=== PATIENT | female | born 1955 | race Caucasian/White ===

== ENCOUNTER 2025-04-07 12:45 | Emergency (ER) | payer OTHER, SELFPAY ==
[2025-04-07] VITALS (11 sets, daily range): BP systolic 146–200; BP diastolic 61–84; PULSE 60–70; RESP 16–20; TEMP 36.5; O2SAT 91–99; BMI 31.3
[2025-04-07 13:21] LABS: Add Manual Diff / Slide Review NO; Hematocrit 42.8 % (36-46); Hemoglobin 15.0 g/dL (12.0-16.0); Lymphocytes Absolute Auto 1300 /uL (1100-4500); Mean Corpuscular HGB Conc 35.0 % (30-36); Mean Corpuscular Hemoglobin 32.0 PG (26-34); Mean Corpuscular Volume 91.5 fL (80-100); Platelet Count 167 X10^3/uL (150-400)
[2025-04-07 13:31] LABS: Alanine Aminotransferase 65 IU/L (<35); Albumin 4.7 g/dL (3.5-5.0); Albumin Globulin Ratio 1.5 (1.0-2.8); Alkaline Phosphatase 67 U/L (38-126); Blood Urea Nitrogen 14 mg/dL (7-17); Calcium 9.6 mg/dL (8.4-10.2); Carbon Dioxide 28 mmol/L (22-32); Chloride 103 mmol/L (98-107); Estimated Glomerular Filt Rate > 60 mL/min (>60); Globulin 3.2 g/dL (1.7-4.1); Glucose 118 mg/dL (70-99); HEMOLYSIS < 15 (0-50); Lipase 93 U/L (23-300); Potassium 4.4 mmol/L (3.4-5.1); Sodium 139 mmol/L (137-145); Total Protein 7.9 g/dL (6.3-8.2)
[2025-04-07 18:08] LABS: Culture Indicated Urine Specimen Cultured
--- NOTE | 2025-04-07 18:08 | ED_ITS ---
HPI - Abdominal Pain General Chief Complaint: Abdominal Pain Stated Complaint: [facility]; Sent for CT, Abd Pain, Diarrhea Time Seen by Provider: 04/07/25 18:08 Source: patient Mode of arrival: Ambulatory History of Present Illness HPI narrative: Patient is a 70-year-old female with a past medical history of Alzheimer's, comes into the ED from home for evaluation of abdominal pain hand diarrhea ongoing persistent for the past few weeks, states that patient has had a change in diet but has been having intermittent symptoms for worsening last night, reports it is severe central abdomen but worse to the lower abdomen, denies any nausea and vomiting, patient at baseline. Denies any other symptoms such as headache visual disturbances chest pain shortness breath fever chills or any other GI/ symptoms at this time. Related Data Previous Rx's ?Medication ?Instructions ?Recorded cefpodoxime 200 mg tablet 200 mg PO Q12H 1 week #14 ta bs 04/07/25 Allergies Allergy/AdvReac Type Severity Reaction Status Date / Time No Known Drug Allergies Allergy Verified 04/07/25 12:53 Review of Systems Review of Systems Narrative: General: Denies fever, chills, weight loss HEENT: Denies headache, eye drainage, eye irritation, head trauma, sore throat, voice change Cardiovascular: Denies any chest pain, palpitations, tachycardia Respiratory: Denies any shortness of breath, cough, wheeze, stridor GI/: Positive abdominal pain, diarrhea denies nausea, vomiting, bright red blood per rectum, melanotic stools, urinary frequency, urinary retention, dysuria, hematuria MSK: Denies any joint pain, muscle pains, swelling Skin: Denies any rashes, lesions, discoloration Neuro: Denies any headache, lightheadedness, dizziness, fainting, weakness Psych: Denies SI/HI Patient History Social History Smoking Status: Former smoker Smoking Status: Former smoker Exam Narrative Exam Narrative: General: Cooperative, well-developed, not in acute distress HEENT: Normocephalic, atraumatic, PERRLA, normal sclera, eyelids normal Neck: Active full range of motion, atraumatic Chest: Normal to inspection, negative crepitus, no overlying erythema ecchymosis Respiratory: Normal respiratory effort, not in acute respiratory distress, clear to auscultation bilaterally negative cough, wheeze, tachypnea, rhonchi, rales Cardiology: Regular rate rhythm negative gallop, murmur, rubs GI/: No tenderness to palpation, soft, non rigid, normal to inspection, exam deferred MSK: Full active range of motion in all 4 extremities, atraumatic, no tenderness to palpation of any bony prominences Skin: No rashes or lesions noted Neuro: Alert awake oriented x3, moves all 4 extremities spontaneously, cranial nerves intact, able to answer all questions appropriately follows commands appropriately Psych: Cooperative, negative suicidal or homicidal ideations Initial Vital Signs Initial Vital Signs: Vital Signs Temperature 97.7 F 04/07/25 12:53 Pulse Rate 65 04/07/25 12:53 Respiratory Rate 17 04/07/25 12:53 Blood Pressure 146/65 H 04/07/25 12:53 Pulse Oximetry 95 04/07/25 12:53 Oxygen Delivery Method Room Air 04/07/25 12:53 Course Orders Ordered: ED Orders 04/07/25 13:10 Complete Blood Count AUTO DIFF Stat Comprehensive Metabolic Panel Stat Lipase Stat 04/07/25 17:48 Urine Culture Stat Urine Microscopic Stat 04/07/25 18:09 CT abdomen pelvis w con Stat Ondansetron HCl (Ondansetron 4 Mg/2 Ml Inj) 4 mg IV NOW PRN PRN Reason: Nausea And Vomiting Ondansetron HCl (Ondansetron 4 Mg Odt) 4 mg PO NOW PRN PRN Reason: Nausea And Vomiting Discontinued Medications Ceftriaxone Sodium 1,000 mg/ (Sodium Chloride) 100 mls @ 200 mls/hr IV NOW ONE Stop: 04/07/25 18:29 Last Infusion: 04/07/25 19:33 Dose: Infused Documented By: Admin: 04/07/25 18:55 Dose: 200 mls/hr Documented By: [facility] Vital Signs Vital signs: Vital Signs - 8 hr 04/07/25 12:53 04/07/25 17:43 04/07/25 17:44 Temperature 97.7 F Pulse Rate 65 65 65 Respiratory Rate 17 Blood Pressure 146/65 H Pulse Oximetry 95 95 97 Oxygen Delivery Method Room Air 04/07/25 17:46 04/07/25 17:46 04/07/25 18:00 Temperature Pulse Rate 62 Respiratory Rate 16 Blood Pressure 163/75 H 146/61 H Pulse Oximetry 99 Oxygen Delivery Method 04/07/25 18:00 04/07/25 18:24 04/07/25 18:24 Temperature Pulse Rate 60 70 Respiratory Rate 16 Blood Pressure 200/82 H Pulse Oximetry 96 98 Oxygen Delivery Method 04/07/25 18:30 04/07/25 18:31 04/07/25 18:31 Temperature Pulse Rate 63 63 Respiratory Rate 20 Blood Pressure 185/81 H Pulse Oximetry 98 98 Oxygen Delivery Method 04/07/25 18:49 04/07/25 19:01 04/07/25 19:30 Temperature Pulse Rate 68 Respiratory Rate 16 Blood Pressure 169/84 H 174/81 H Pulse Oximetry 91 Oxygen Delivery Method MDM - Abdominal Pain Differential Diagnosis Differential diagnosis: Likely abdominal pain, acute appendicitis, constipation, diverticulitis, gastroenteritis, pancreatitis and other (Electrolyte abnormality, urinary tract infection) Lab Data 04/07/25 13:10 04/07/25 13:10 Labs: Lab Results 04/07/25 04/07/25 Range/Units 13:10 17:48 WBC 5.8 (4.5-11.0) X10^3/uL RBC 4.67 (4.0-5.2) X10^6/uL Hgb 15.0 (12.0-16.0) g/dL Hct 42.8 (36-46) % MCV 91.5 (80-100) fL MCH 32.0 (26-34) PG MCHC 35.0 (30-36) % RDW 12.8 (11.6-14.8) % Plt Count 167 (150-400) X10^3/uL Neut % (Auto) 68.0 (50-75) % Lymph % (Auto) 23.2 L (25-40) % [place] % (Auto) 6.2 (3-14) % Eos % (Auto) 2.0 (2-4) % Baso % (Auto) 0.6 (0-2) % Neut # (Auto) 3900 (3809-4615) /uL Lymph # (Auto) 1300 (7479-0192) /uL [place] # (Auto) 400 (0-900) /uL Eos # (Auto) 100 (0-450) /uL Baso # (Auto) 0 (0-100) /uL Sodium 139 (137-145) mmol/L Potassium 4.4 (3.4-5.1) mmol/L Chloride 103 (98-107) mmol/L Carbon Dioxide 28 (22-32) mmol/L BUN 14 (7-17) mg/dL Creatinine 0.86 (0.52-1.04) mg/dL Estimated GFR > 60 (>60) mL/min BUN/Creatinine Ratio 16.3 (6-22) Glucose 118 H (70-99) mg/dL Calcium 9.6 (8.4-10.2) mg/dL Total Bilirubin 0.6 (0.2-1.3) mg/dL AST 50 H (14-36) IU/L ALT 65 H (<35) IU/L Alkaline Phosphatase 67 (38-126) U/L Total Protein 7.9 (6.3-8.2) g/dL Albumin 4.7 (3.5-5.0) g/dL Globulin 3.2 (1.7-4.1) g/dL Albumin/Globulin Ratio 1.5 (1.0-2.8) Lipase 93 (23-300) U/L Urine RBC 0-1/hpf (0-5/HPF) Urine WBC 10-30/hpf H (0-5/HPF) Ur Squamous Epith Cells 1-5 /hpf (0-5/HPF) Urine Bacteria Few (2-10) H (None) Ur Culture Indicated? Specimen cultured Vol Urine Centrifuged 10ml (spun) Point of care testing: Urine Dip Bedside Urine Glucose Negative Bedside Urine Bilirubin - Negative Bedside Urine Ketone - Negative Urine Specific [place] 1.030 Bedside Urine Occult Blood - Negative Bedside Urine pH 5 Bedside Urine Protein +/- 15 Bedside Urine Urobilinogen - Negative Bedside Urine Nitrite - Negative Bedside Urine Leukocytes +++ [address] scan - abdomen/pelvis: Radiologist's Impression: [address] [address] [address] Scan Report Signed Patient: Marya Goodman MR#: [id number] : 1955 Acct:[id number] Age/Sex: 70 / F Date of Service: 04/07/25 Loc: ED Accession Number: [id number] Procedure: CT abdomen pelvis w con Ordering Provider: Jair Stevens D.O. PROCEDURE: CT ABDOMEN PELVIS W CON INDICATIONS: lower abd pain TECHNIQUE: After the administration of intravenous contrast, axial sections acquired from the lung bases to the pubic symphysis. Coronal and sagittal reformats were performed. For radiation dose reduction, the following was used: automated exposure control, adjustment of mA and/or kV according to patient size. COMPARISON: None. FINDINGS: Image quality: Diagnostic. Lower Chest: Pacemaker leads. No pleural effusion. ABDOMEN: Liver: No solid mass. A few small cysts. Gallbladder: Absent. Biliary ducts: No biliary dilation. Pancreas: No ductal dilation. Spleen: Size is within normal limits. Adrenal Glands: No adrenal nodules. Kidneys and Ureters: No hydronephrosis. No solid mass. No complex renal cystic lesion which requires follow up. Stomach and Bowel: Normal colonic caliber, without significant wall thickening. The appendix is not seen. Peritoneum: No abnormal intraperitoneal fluid. No free air. Ventral Wall: No significant ventral hernia. Upper abdominal mesh. Abdominal Nodes: No retroperitoneal or mesenteric adenopathy by size criteria. Vessels: Aorta and inferior vena cava are normal in size. Circumferential calcified atherosclerotic plaque. PELVIS: Pelvic Organs: Retroverted postmenopausal uterus. Bladder: No bladder wall thickening, accounting for underdistention. Pelvic Nodes: No enlarged lymph nodes. Miscellaneous: No inguinal hernias are seen. Bones: No aggressive osseous abnormality. Multilevel DDD. IMPRESSION: No acute abnormality identified. MDM Narrative Medical decision making narrative: Patient is a 70-year-old female with a past medical history of Alzheimer's brought in by family for evaluation of abdominal pain, diarrhea, according to the has been who brought patient in patient has been having diarrhea ongoing persistent for the past several months, they state that they are not concerned about this he states that he is concerned that patient is not complaining of abdominal pain, patient states that it is to her periumbilical and left lower quadrant, patient had lab work imaging urinalysis performed here in the emergency department, urinalysis was consistent acute urinary tract infection, 1st dose of antibiotics was given through the IV. Remainder of lab work was unremarkable, CT scan showed no acute findings. She will be discharged home with oral antibiotics for urinary tract infection, patient and has been was given strict return precautions he verbalized understanding of this and agrees to being discharged home with outpatient follow up Discharge Plan Departure Patient Disposition: Home Clinical Impression: Urinary tract infection Instructions: DI for Urinary Tract Infection (UTI) Activity Restrictions/Additional Instructions: Please follow up with your primary care doctor please take your antibiotics to completion Please read the discharge instructions sheet carefully and bring all papers to all doctor follow-up visits, as it may contain information that your doctor may want to see. Disease processes change and evolve, if your symptoms worsen or if you develop any new symptoms that are concerning to you please return for evaluation. Your evaluation today does not show any evidence of any life- threatening/serious illnesses requiring admission to the hospital or surgery. Please follow-up with your doctor for re-evaluation in approximately 1 day. Seek immediate medical attention for any worrisome symptoms. *If you do not have a primary care provider please contact the [facility] Resource line at [phone]. They will ask some questions about your medical history and help get you set up with a doctor in the community. Prescriptions: New cefpodoxime 200 mg tablet 200 mg PO Q12H 7 Days Qty: 14 0RF Rx Instructions: must administer with a meal/food Stand Alone Forms: Patient Portal/API
== END 2025-04-07 20:50 | disposition home or self-care (01) ==
PROVIDERS: Emergency Medicine; Emergency Provider Student in an Organized Health Care Education/Training Program
DX: N39.0 Urinary tract infection, site not specified (principal)
CPT/HCPCS: 74177; 80053; 81003; 81015; 83690; 85025; 87077; 87086; 87186; 96365; 99283; 99284; J0696; Q9967